=== PATIENT | female | born 1995 | race Caucasian/White ===

== ENCOUNTER 2020-07-04 15:03 | Emergency (ER) | payer OTHER ==
[~2020-07-04] VITALS: Ht 154.9 cm; Wt 92.8 kg
--- NOTE | 2020-07-04 15:20 | PHYS DOC ---
Adult General Chief Complaint Chief Complaint: ABSCESS HPI HPI Patient is a 25-year-old female presents emergency department with complaints of a pimple that burst in the middle of her old scar this morning. Patient states she first noticed a small sore in the center of her 2-year-old scar approximately a week ago. Patient states that slowly became larger and more painful and noticed today that it popped and approximately 1 teaspoon of whitish mucousy substance expelled. Patient patient also complains of increased urinary frequency with urinary pressure for the past week, patient states that she just started her normal menstrual cycle today. Patient denies any other illnesses or physical symptoms. (DREW TIAN APRN) Review of Systems Review of Systems Constitutional: Denies fever or chills Eyes: Denies change in visual acuity, redness, or eye pain HENT: Denies nasal congestion or sore throat Respiratory: Denies cough or shortness of breath Cardiovascular: No additional information not addressed in HPI GI: Denies abdominal pain, nausea, vomiting, bloody stools or diarrhea : Denies dysuria or hematuria Musculoskeletal: Denies back pain or joint pain Integument: Denies rash, complains of a pimple on her low abdomen just center of her old scar that popped and drained purulent drainage today. Neurologic: Denies headache, focal weakness or sensory changes Endocrine: Denies polyuria or polydipsia All other systems were reviewed and found to be within normal limits, except as documented in this note. (DREW TIAN APRN) Family History Family History Patient denies family history significant to this visit. (DREW TIAN APRN) Current Medications Current Medications Patient denies current prescription medications or [id number] medications. (DREW TIAN APRN) Allergies Allergies Allergies Coded Allergies Type Severity Reaction Last Updated Verified No Known Drug Allergies 07/04/20 No (DREW TIAN APRN) Physical Exam Physical Exam Constitutional: Well developed, well nourished, no acute distress, non-toxic appearance. HENT: Normocephalic, atraumatic, bilateral external ears normal, oropharynx moist, no oral exudates, nose normal. Eyes: PERRLA, EOMI, conjunctiva normal, no discharge. Neck: Normal range of motion, no tenderness, supple, no stridor. Cardiovascular:Heart rate regular rhythm, no murmur Lungs & Thorax: Bilateral breath sounds clear to auscultation Abdomen: Bowel sounds normal, soft, no tenderness, no masses, no pulsatile masses. Skin: Warm, dry, no erythema, no rash. Patient has a old well-healed scar at the superior mons pubis area with a small skin lesion with a central punctum, erythematous, consistent with folliculitis. Patient does report shaving in the area. No other skin lesions noted, there is no purulent drainage from the infected folliculitis area. The small skin lesion measures 3 mm. Back: No tenderness, no CVA tenderness. Extremities: No tenderness, no cyanosis, no clubbing, ROM intact, no edema. Neurologic: Alert and oriented X 3, normal motor function, normal sensory function, no focal deficits noted. Psychologic: Affect normal, judgement normal, mood normal. (DREW TIAN APRN) Current Patient Data Lab Results Laboratory Tests Test 07/04/20 15:33 07/04/20 15:52 Urine Collection Type Unknown Urine Color Colorless Urine Clarity Clear Urine pH 6.5 Urine Specific [place] 1.010 Urine Protein Neg Urine Glucose (UA) Neg mg/dL Urine Ketones (Stick) Neg mg/dL Urine Blood Neg Urine Nitrite Neg Urine Bilirubin Neg Urine Urobilinogen Dipstick 0.2 mg/dL Urine Leukocyte Esterase Neg Urine RBC 0 /HPF Urine WBC 0 /HPF Urine Squamous Epithelial Cells Few /LPF Urine Bacteria 0 /HPF Bedside Urine HCG, Qualitative hcg negative Current Medications Medications (Trade) Dose Ordered Sig/[place] Route PRN Reason Start Time Stop Time Status Last Admin Dose Admin Mupirocin (Bactroban) 1 ozzy 1X ONCE TP 07/04/20 15:42 07/04/20 15:43 DC 07/04/20 15:45 (DREW TIAN APRN) EKG EKG [] (DREW TIAN APRN) Radiology/Procedures Radiology/Procedures [] (DREW TIAN APRN) Heart Score Risk Factors: Risk Factors: DM, Current or recent (<one month) smoker, HTN, HLP, family history of CAD, obesity. Risk Scores: Risk Factors: DM, Current or recent (<one month) smoker, HTN, HLP, family history of CAD, obesity. (DREW TIAN APRN) Course & Med Decision Making Course & Med Decision Making Pertinent Labs and Imaging studies reviewed. (See chart for details) 25-year-old patient presents emergency department complaining of a small pimple at the center of her car that popped today. Patient worries that there may be a problem with the scar. Patient states she had C- section 2 years ago. Physical examination showed a well-healing scar in the superior symphysis pubis area small skin lesion with a central punctum consistent with a folliculitis. Patient does shave her pubic hair. Patient did complain of UTI type symptoms. A UA was ordered, results were negative for urinary tract infection, her urine was not infected. Discussed diagnosis of folliculitis with patient, first dose of mupirocin ointment applied in the emergency department today. Patient was given a prescription for mupirocin ointment to apply 3 times a day for the next 7 days. Patient gave verbal understanding of prescription medications, home care, return to emergency department concerns, patient had no further questions or concerns, patient discharged home without incident. Diagnosis folliculitis, idiopathic in nature, most likely caused from shaving. Unlikely acne vulgaris, cutaneous [place], irritant contact dermatitis, fire ant bites, insect bites, pseudofolliculitis barbae, scabies, tinea barbae, tinea capitis, tinea corporis, or urticaria. (DREW TIAN APRN) Dragon Disclaimer Dragon Disclaimer This electronic medical record was generated, in whole or in part, using a voice recognition dictation system. (DREW TIAN APRN) Departure Departure: Impression: Primary Impression: Folliculitis Disposition: 01 DC HOME SELF CARE/HOMELESS Condition: IMPROVED Referrals: ISAIAH ORTIZ MD (PCP) Patient Instructions: Folliculitis Additional Instructions: Apply the Bactroban ointment to your folliculitis area 3 times a day for the next 7 days. Return to the emergency department for worsening symptoms or further concerns. See your doctor soon. EMERGENCY DEPARTMENT GENERAL DISCHARGE INSTRUCTIONS Thank you for coming to [facility] (ED) today and trusting us with you care. We trust that you had a positivie experience in our Emergency Department. If you wish to speak to the department management, you may call the director at [phone]. YOUR FOLLOW UP INSTRUCTIONS ARE FOLLOWS: 1. Do you have a private Doctor? If you do not have a private doctor, please ask for a resource list of physicians or clinics that may be able to assist you with follow up care. 2. The Emergency Physician has interpreted your x-rays. The X-Ray specialist will also review them. If there is a change in the findings, you will be notified in 48 hours when at all possible. 3. A lab test or culture has been done, your results will be reviewed and you will be notified if you need a change in treatment. ADDITIONAL INSTRUCTIONS AND INFORMATION: 1. Your care today has been supervised by a physician who is specially trained in emergency care. Many problems require more than one evaluation for a complete diagnosis and treatment. We recommend that you schedule your follow up appointment as recommended to ensure complete treatment of you illness or injury. If you are unable to obtain follow up care and continue to have a problem, or if your condition worsens, we recommend that you return to the ED. 2. We are not able to safely determine your condition over the phone nor are we able to give sound medical advice over the phone. For these safety reasons, if you call for medical advice we will ask you to come to the ED for further evaluation. 3. If you have any questions regarding these discharge instructions please call the ED at [phone]. SAFETY INFORMATION: In the interest of safety, wellness, and injury prevention; we encourage you to wear your sealbelt, if you smoke; quite smoking, and we encourage family to use a protective helmet for bicycling and other sporting events that present an increased risk for head injury. IF YOUR SYMPTOMS WORSEN OR NEW SYMPTOMS DEVELOP, OR YOU HAVE CONCERNS ABOUT YOUR CONDITION; OR IF YOUR CONDITION WORSENS WHILE YOU ARE WAITING FOR YOUR FOLLOW UP APPOINTMENT; EITHER CONTACT YOUR PRIMARY CARE DOCTOR, THE PHYSICIAN WHOSE NAME AND NUMBER YOU WERE GIVEN, OR RETURN TO THE ED IMMEDIATELY. Scripts Mupirocin (MUPIROCIN) 22 Gm Oint...g. 1 OZZY TP TID for FOLLICULITIS, #22 GM 0 Refills APPLY TO INFECTED AREA 3 TIMES PER DAY FOR 7 DAYS Prov: DREW TIAN APRN 07/04/20 Attending Co-Sign Attending Co-Sign The patient was seen and well-appearing. The chart was reviewed. The case was discussed. Agree with the plan of care. (RAVI LINARES DO) DREW TIAN APRN Jul 04, 2020 15:20 RAVI LINARES DO Jul 06, 2020 13:08
[2020-07-04] MEDS ORDERED: MUPIROCIN 2% TOPICAL OINTMENT 22GM TUBE. TP ONE (15:42)
[2020-07-04 16:26] LABS: COLOR,URINE COLORLESS
[2020-07-04 16:27] LABS: BACTERIA,URINE 0 /HPF (0-FEW); BILIRUBIN,URINE NEG (NEG); CLARITY,URINE CLEAR; GLUCOSE,URINE NEG (NEG); NITRITE,URINE NEG (NEG); RBC,URINE 0 /HPF (0-2); SQUAMOUS EPITHELIAL CELL,UR FEW /LPF; UROBILINOGEN,URINE 0.2 mg/dL (0.2 mg/dL); WBC,URINE 0 /HPF (0-4)
[2020-07-04 16:45] VITALS: BP 141/90
[2020-07-04] MEDS ORDERED: MUPI22OI2 TP (16:48)
== END 2020-07-04 16:54 | disposition home or self-care (01) ==
LOC: ER 15:03
DX: L73.9 Follicular disorder, unspecified (principal); R35.0 Frequency of micturition
CPT/HCPCS: 81001; 81025; 99283